=== PATIENT | female | born 1990 | race Two or more races ===

== ENCOUNTER 2022-04-01 11:50 | Emergency (ER) | payer OTHER ==
[~2022-04-01] VITALS: Ht 165.1 cm; Wt 74.8 kg
[2022-04-01 12:33] VITALS: BP 118/67
[2022-04-01] MEDS ORDERED: IBUP800T27 PO (13:26)
[2022-04-01] MEDS ORDERED: METH750T22 PO (13:26)
[2022-04-01] MEDS ORDERED: IBUPROFEN 800 MG TAB PO ONE (13:30)
== END 2022-04-01 13:03 | disposition home or self-care (01) ==
LOC: ER 11:50
DX: S76.911A Strain of unspecified muscles, fascia and tendons at thigh level, right thigh, initial encounter (principal); S93.601A Unspecified sprain of right foot, initial encounter; V43.62XA Car passenger injured in collision with other type car in traffic accident, initial encounter; Y93.89 Activity, other specified; Y92.488 Other paved roadways as the place of occurrence of the external cause; Y99.8 Other external cause status
CPT/HCPCS: 73630